=== PATIENT | female | born 1980 | race Caucasian/White ===

== ENCOUNTER 2020-05-11 12:51 | Outpatient (CLI) | payer BC, SELFPAY ==
--- NOTE | ~2020-05-11 | US_ITS ---
EXAMINATION: US pelvic complete w TV DATE: 05/11/2020 13:58 INDICATION: Vaginal bleeding Comparison:Ultrasound dated 02/12/2017 TECHNIQUE: Multiple transabdominal and endovaginal sonographic images of the pelvis performed. FINDINGS: The uterus measures 9.4 x 4.2 x 4.7 cm. IUD is present in the fundus of uterus. The endomet rial complex measures 6 mm. The right ovary measures 2.3 x 1.9 x 1.6 cm. Left ovary not visualized. There is no free fluid in the pelvis. There are no abnormal masses seen on either side. IMPRESSION: 1. Unremarkable pelvic ultrasound. Reviewed, dictated and finalized at location A.
== END 2020-05-11 12:52 | disposition home or self-care (01) ==
PROVIDERS: PCP Family Medicine; Visit Provider Physician Assistant
DX: N93.9 Abnormal uterine and vaginal bleeding, unspecified (principal)
CPT/HCPCS: 76830; 76856

== ENCOUNTER 2022-06-21 01:41 | Day surgery (SDC) | payer OTHER, SELFPAY ==
[2022-06-21 08:07] VITALS: BP 148/95; PULSE 103; RESP 18; TEMP 36; O2SAT 99
--- NOTE | 2022-06-21 08:11 | WPDANESEPPF ---
Anes - Initial Pre Proc Eval Procedure: Operation Date: 06/21/22 09:15 Proposed Procedures p Colonoscopy - Carlos Crooks MD Date/Time: 06/21/22 08:11 Surgeon: Carlos Crooks MD Pre Op Diagnosis: diarrhea Patient Data Age: 41 Gender: F Height: 1.7 m Weight: 131.6 kg Last Vital Signs Temp 36.0 C L 06/21/22 08:07 Pulse 103 H 06/21/22 08:07 Resp 18 06/21/22 08:07 BP 148/95 H 06/21/22 08:07 Pulse Ox 99 06/21/22 08:07 O2 Del Method Room Air 06/21/22 08:07 Allergies Allergy/AdvReac Type Severity Reaction Status Date / Time No Known Allergies Allergy Verified 06/21/22 08:05 Home Medications Medication Instructions Recorded Confirmed Type fluticasone propionate 50 1 spray intranasal DAILY 04/24/22 06/21/22 History mcg/actuation nasal spray,suspension (Flonase Allergy Relief) sodium bicarbonate-sodium chloride See Rx Instructions .Route .COMPLEX 04/24/22 06/21/22 History powder levothyroxine 50 mcg tablet 50 mcg PO DAILY #90 tabs 06/13/22 06/21/22 Rx (Synthroid) selenium 100 mcg capsule 100 mcg PO DAILY 06/21/22 06/21/22 History Patient hx anesthesia problems: none Family hx anesthesia problems: none Results Review: All pre-operative results and documents have been reviewed as part of the pre-operative evaluation. [facility] Past Medical History Medical History Bartholin's cyst Seasonal allergies Vaginal delivery Surgical History Surgical History H/O adenoidectomy (~2003) H/O hernia repair History of tonsillectomy (~2003) Hx of cholecystectomy Family History Family History Grandparent Diabetes mellitus Family history of hypercholesterolemia Hypertension Family history of cardiovascular disease Cerebrovascular accident Father Family history of hypercholesterolemia Hypertension Family history of heart disease in male family member before age 55 Social History Social History Smoking packs per day: 1 Smoking cigarettes per day: 20.0 Years smoked: 20 Smoking pack-years: 20.00 Smoking status: Former smoker Tobacco type: cigarettes and e-cigarettes/vaping Alcohol intake: current Drinks per week: 7 Alcohol use details: daily use Substance use: never Substance use type: does not use Living arrangements: with family Gender identity (if verbalized by the patient): Female Spiritual care concerns: No Agree to blood products: Yes Anes - Eval Final PreProcedure Day of Procedure 06/21/22 08:11 Patient weight: morbidly obese Heart: regular rate and rhythm Lungs: clear to auscultation and normal air movement Airway: Mallampati scale class II Neurological: alert and oriented Last oral intake: >/= 8 hours ASA classification: III Emergent: no Anesthetic plan: proceed Anesthesia type and monitoring: general GIVS Results Review: All pre-operative results and documents have been reviewed as part of the pre-operative evaluation. Informed Consent: The patient's anesthetic plan and its attendant risks and benefits were discussed with the patient/family/POA. Questions were solicited and answers provided to the satisfaction of the patient/family/POA.
[2022-06-21] MEDS: LACTATED RINGERS 1,000 ML 150 ML IV CONT (08:15)
--- NOTE | 2022-06-21 08:45 | WPDGICN ---
Assessment and Plan Assessment and plan (1) Chronic diarrhea: Code(s): K52.9 - Noninfective gastroenteritis and colitis, unspecified Status: Acute Assessment and Plan: Patient describes lifelong chronic diarrhea. This may represent irritable bowel syndrome. Recent stool cultures are unremarkable. Plan is for colonoscopy to assess more thoroughly. Trial of fiber supplementation is suggested at present. Further recommendations may be given after endoscopy. (2) Rectal bleeding: Code(s): K62.5 - Hemorrhage of anus and rectum Status: Acute Assessment and Plan: Patient reports a 1 week history of rectal bleeding that resolved spontaneously. Recent anoscopy suggest internal hemorrhoids. Further recommendations will be given after colonoscopy to assess more thoroughly. Fiber supplementation may help this. 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 Would recommend follow-up colonoscopy after an interval perhaps 6-12 months to confirm this. GI Consult Note Consult date/time: 06/21/22 08:45 Reason for consult: Diarrhea and rectal bleeding. HPI: Mary Lu is a 41 year old female Referred by Dr. Mary Ellen Trinh. Patient complains of lifelong history of diarrhea. She states stools are loose and frequent. Typically will wake her in the morning. Occurs several times a day. Most often watery sometimes loose. Rarely solid. She states she did have 1 episode of bleeding a month ago that lasted for 1 week. She went to the emergency room where the standard CT scan revealed the possibility of a liver mass felt to be fatty replacement. Patient subsequently had anoscopy in primary care office the confirmed internal hemorrhoids. Patient has recently had stool cultures performed there were unremarkable. She has tried no specific therapy to improve her diarrhea. Family history is noncontributory. Patient referred today for colonoscopy to assess more thoroughly. Review of Systems Review of Systems: Review of systems noncontributory. [facility] Past Medical History Medical History Bartholin's cyst Seasonal allergies Vaginal delivery Surgical History Surgical History H/O adenoidectomy (~2003) H/O hernia repair History of tonsillectomy (~2003) Hx of cholecystectomy Family History Family History Grandparent Diabetes mellitus Family history of hypercholesterolemia Hypertension Family history of cardiovascular disease Cerebrovascular accident Father Family history of hypercholesterolemia Hypertension Family history of heart disease in male family member before age 55 Social History Social History Smoking packs per day: 1 Smoking cigarettes per day: 20.0 Years smoked: 20 Smoking pack-years: 20.00 Smoking status: Former smoker Tobacco type: cigarettes and e-cigarettes/vaping Alcohol intake: current Drinks per week: 7 Alcohol use details: daily use Substance use: never Substance use type: does not use Living arrangements: with family Gender identity (if verbalized by the patient): Female Spiritual care concerns: No Agree to blood products: Yes Meds Home Medications and Allergies Home Medications Medication Instructions Recorded Confirmed Type fluticasone propionate 50 1 spray intranasal DAILY 04/24/22 06/21/22 History mcg/actuation nasal spray,suspension (Flonase Allergy Relief) sodium bicarbonate-sodium chloride See Rx Instructions .Route .COMPLEX 04/24/22
[2022-06-21 09:10] LABS: Beta HCG Quantitative < 2.39 mIU/ML
[2022-06-21 09:26] VITALS: BP 113/64; PULSE 72; RESP 22; O2SAT 97
[2022-06-21 09:36] VITALS: BP 120/67; PULSE 64; RESP 20; O2SAT 98
[2022-06-21 09:46] VITALS: BP 121/64; PULSE 68; RESP 18; O2SAT 99
== END 2022-06-21 09:55 | disposition home or self-care (01) ==
PROVIDERS: Anesthesiology; PCP Family Medicine; Visit Provider Internal Medicine Gastroenterology
PROC: 0DJD8ZZ Inspection of Lower Intestinal Tract, Via Natural or Artificial Opening Endoscopic (ICD-10-PCS; CPT 45378; principal; 2022-06-21 09:15)
DX: R19.7 Diarrhea, unspecified (principal); K62.5 Hemorrhage of anus and rectum; K63.5 Polyp of colon; K64.8 Other hemorrhoids; R16.0 Hepatomegaly, not elsewhere classified; E66.01 Morbid (severe) obesity due to excess calories; Z68.42 Body mass index [BMI] 45.0-49.9, adult; Z87.891 Personal history of nicotine dependence
CPT/HCPCS: 45385; 45380; 36415; 84702; 88305; J2704; J7120

== ENCOUNTER 2022-07-18 10:44 | Outpatient (CLI) | payer OTHER, SELFPAY ==
--- NOTE | ~2022-07-18 | XR_ITS ---
EXAMINATION: XR knee LT 3V DATE: 07/18/2022 11:19 INDICATION: Left knee pain TECHNIQUE: Three views of the left knee were obtained. COMPARISON: None. FINDINGS: Alignment is normal. No fracture or osteochondral lesion. There is mild tricompartmental os teoarthritis characterized by tiny marginal osteophytes. No joint effusion/synovitis. Soft tissues a re unremarkable. IMPRESSION: 1. No acute osseous abnormality. Reviewed, dictated and finalized at location A.
== END 2022-07-18 10:45 | disposition home or self-care (01) ==
LOC: ANHIMG 10:50
PROVIDERS: PCP Family Medicine; Visit Provider Family Medicine
DX: M17.12 Unilateral primary osteoarthritis, left knee (principal)
CPT/HCPCS: 73562

== ENCOUNTER 2023-02-21 15:12 | Emergency (ER) | payer OTHER, SELFPAY ==
[2023-02-21 15:23] VITALS: BP 157/112; PULSE 79; RESP 12; TEMP 36.5; O2SAT 98
--- NOTE | 2023-02-21 15:30 | ED.WOUNDLAC ---
HPI - Wound/Laceration General Chief Complaint: Wound/Laceration Stated Complaint: Left Hand Laceration Time Seen by Provider: 02/21/23 15:30 Source: patient, RN notes reviewed and old records reviewed Mode of arrival: ambulatory Limitations: no limitations History of Present Illness HPI narrative: 42-year-old female presents to the [facility] with complaints of a laceration to the palmar aspect left hand just below the 5th finger. For 0.5 cm laceration, gaping. Full range of motion of the finger. States that she was drinking margaritas in cutting avocados with a new knife when she cut her hand. Per medical record Tdap 10 years ago 2013 Related Data Home Medications Medication Instructions Recorded Confirmed fluticasone propionate 50 1 spray intranasal DAILY 04/24/22 02/21/23 mcg/actuation nasal spray,suspension (Flonase Allergy Relief) Allergies Allergy/AdvReac Type Severity Reaction Status Date / Time No Known Allergies Allergy Verified 02/21/23 15:43 Review of Systems Review of Systems: All systems reviewed & are unremarkable except as noted in HPI and below Constitutional: Constitutional: Reports no additional constitutional complaints Eyes: Eyes: Reports no additional eye complaints ENT: Reports system reviewed and no additional complaints, except as documented Cardiovascular: Cardiovascular: Reports no additional cardiovascular complaints, Denies chest pain and Denies dyspnea Respiratory: Respiratory: Reports no additional respiratory complaints, Denies chest congestion, Denies cough and Denies dyspnea Gastrointestinal: Gastrointestinal: Reports no additional gastrointestinal complaints, Denies abdominal pain, Denies nausea and Denies vomiting Musculoskeletal: Musculoskeletal: Reports no additional musculoskeletal complaints Integumentary/Breasts: Skin/Breast: Reports as per HPI Neurologic: Reports system reviewed and no additional complaints, except as documented Psychiatric: Psychiatric: Reports no additional psychiatric complaints Allergic/Immunologic: Allergic/Immunologic: Reports no additional allergic/immunologic complaints [facility] Past Medical History Medical History Bartholin's cyst Seasonal allergies Vaginal delivery Surgical History Surgical History H/O adenoidectomy (~2003) H/O hernia repair History of tonsillectomy (~2003) Hx of cholecystectomy Family History Family History Grandparent Diabetes mellitus Family history of hypercholesterolemia Hypertension Family history of cardiovascular disease Cerebrovascular accident Father Family history of hypercholesterolemia Hypertension Family history of heart disease in male family member before age 55 Social History Social History Smoking packs per day: 1 Smoking cigarettes per day: 20.0 Years smoked: 20 Smoking pack-years: 20.00 Smoking status: Former smoker Tobacco type: cigarettes and e-cigarettes/vaping Alcohol intake: current Drinks per week: 7 Alcohol use details: daily use Substance use: never Substance use type: does not use Living arrangements: with family Occupation/Education: occupation Gender identity (if verbalized by the patient): Female Spiritual care concerns: No Agree to blood products: Yes Comments At the time of my signature, I reviewed and agree with the nursing past medical, surgical, social, and family history. There is no relevant family history pertinent to the patient complaint. Exam Const: General: cooperative, healthy appearing, comfortable, no acute distress, well developed, alert and well nourished Nutritional Appearance: well nourished Orientation/consciousness: patient oriented x3 Limitations: no limitations HENMT: Head: elma
[2023-02-21] MEDS: LIDOCAINE HCL 1% LOCAL INJ 2 ML AMPUL 8 ML INFILTRATE (15:56)
[2023-02-21] MEDS: WATER FOR IRRIGATION, STERILE 1,000 ML BOTTLE 250 ML IRRIGATION (16:03)
[2023-02-21] MEDS: TETANUS,DIPHTHERIA,AC PERTUSSIS ADULT (0.5 ML) BOOSTRIX IM (16:17)
[2023-02-21 16:25] VITALS: BP 142/82; PULSE 68; RESP 16; O2SAT 98
--- NOTE | 2023-02-21 16:30 | PC.NURSE ---
PT TOLERATED SUTURES WELL. DRESSING IN PLACE UPON ARRIVAL. 5 SUTURES WERE PLACED.
== END 2023-02-21 16:25 | disposition home or self-care (01) ==
PROVIDERS: Emergency Provider Nurse Practitioner; PCP Family Medicine
DX: S61.412A Laceration without foreign body of left hand, initial encounter (principal); W26.0XXA Contact with knife, initial encounter; Y93.G9 Activity, other involving cooking and grilling; Z23 Encounter for immunization
CPT/HCPCS: 12002; 90471; 90715; 99212; G0463